=== PATIENT | female | born 2000 | race Caucasian/White ===

== ENCOUNTER 2023-10-08 20:52 | Inpatient (IN) | payer OTHER ==
[2023-10-08] MEDS ORDERED: Calcium Carbonate 500 MG Tab.Chew PO PRN (23:31)
[2023-10-08] MEDS ORDERED: Methylergonovine 0.2 MG/1 ML Amp IM PRN (23:31)
[2023-10-08] MEDS ORDERED: Misoprostol 200 MCG Tab BUCCAL PRN (23:31)
[2023-10-08] MEDS ORDERED: Nalbuphine 10 MG/1 ML Vial IVPUSH PRN (23:31)
[2023-10-08] MEDS ORDERED: Lidocaine 1% 50 ML MDV INJECT PRN (23:31)
[2023-10-08] MEDS ORDERED: Ondansetron 4 MG/2 ML SDV IVPUSH PRN (23:31)
[2023-10-08] MEDS ORDERED: Sodium Chloride 0.9% 10 ML Syringe FLUSH PRN (23:31)
[2023-10-08] MEDS ORDERED: Oxytocin/0.9 % Sodium Chloride 30 UNIT/500 ML BAG IV SCH (23:45)
[2023-10-08 23:52] LABS: BASOPHILS PERCENT AUTO 0.1 % (0.0-1.0); EOSINOPHILS ABSOLUTE AUTO 0.1 K/mm3 (0.0-0.4); EOSINOPHILS PERCENT AUTO 0.6 % (0.0-6.0); HEMATOCRIT 37.2 % (37.0-47.0); HEMOGLOBIN 12.6 gm/dl (12.0-16.0); IMMATURE GRAN ABSOLUTE AUTO 0.05 K/mm3 (0.00-0.05); IMMATURE GRAN PERCENT AUTO 0.4 % (0.0-0.4); LYMPHOCYTES ABSOLUTE AUTO 1.9 K/mm3 (1.0-4.8); LYMPHOCYTES PERCENT AUTO 15.7 % (24.0-44.0); MEAN CORPUSCULAR HEMOGLOBIN 30.8 pg (28.0-32.0); MEAN CORPUSCULAR HGB CONC 33.9 g/dl (32.0-36.0); MEAN PLATELET VOLUME 10.5 fl (9.4-12.3); MONOCYTES ABSOLUTE AUTO 0.7 K/mm3 (0.0-0.8); NEUTROPHILS ABSOLUTE AUTO 9.3 K/mm3 (1.8-7.7); NEUTROPHILS PERCENT AUTO 77.2 % (41.0-71.0); PLATELET COUNT,PLT 244 K/mm3 (150-400); RED BLOOD CELL COUNT 4.09 M/mm3 (4.10-5.30); WHITE BLOOD CELL COUNT,WBC 12.01 K/mm3 (3.9-11.3)
[2023-10-08] MEDS: Ampicillin 2 GM in Sodium Chloride 0.9% 100 ML IV ONE (23:56)
[2023-10-09] MEDS: Lactated Ringers 1,000 ML IV SCH (02:00)
[2023-10-09] MEDS: Oxytocin/Lactated Ringers 30 UNIT/500 ML BAG IV SCH (03:15)
[2023-10-09] MEDS: Ampicillin 1 GM in Sodium Chloride 0.9% 100 ML IV SCH (03:30)
[2023-10-09] MEDS ORDERED: Docusate Sodium 100 MG Cap PO PRN (04:38)
[2023-10-09] MEDS ORDERED: Hydrocortisone Acetate 25 MG Supp RECTAL PRN (04:38)
[2023-10-09] MEDS ORDERED: Magnesium Hydroxide 400 MG/5 ML Susp 30 ML Cup PO PRN (04:38)
[2023-10-09] MEDS ORDERED: Benzocaine/Menthol 20%-0.5% Spray 78 GM Cannister TOP PRN (04:38)
[2023-10-09] MEDS ORDERED: Witch Hazel Medicated Pads 40/Jar TOP PRN (04:38)
[2023-10-09] MEDS: Ibuprofen 600 MG Tab PO SCH (05:00)
[2023-10-09] MEDS: Prenatal Multivitamin with Calcium/Folic Acid/Iron Tab PO SCH (09:58)
[2023-10-09] MEDS: Acetaminophen 325 MG Tab PO PRN (20:30)
== END 2023-10-10 16:10 | disposition home or self-care (01) | DRG 807 ==
LOC: JD.NBCHECK 20:52 → JD.OB 10-09 02:23 → OBSVTOIN 10-09 03:05 → JD.OB 10-09 03:06
PROVIDERS: ADMIT Obstetrics & Gynecology; ATTEND Obstetrics & Gynecology
PROC: 10E0XZZ Delivery of Products of Conception, External Approach (ICD-10-PCS; principal; 2023-10-09)
PROC: 10907ZC Drainage of Amniotic Fluid, Therapeutic from Products of Conception, Via Natural or Artificial Opening (ICD-10-PCS; 2023-10-09)
DX: O99.824 Streptococcus B carrier state complicating childbirth (principal); Z37.0 Single live birth; O69.81X0 Labor and delivery complicated by cord around neck, without compression, not applicable or unspecified; Z3A.39 39 weeks gestation of pregnancy; Z90.89 Acquired absence of other organs
CPT/HCPCS: 36415; 59025; 59409; 85025; 86592; A9270-GY; J0290; J3490; J7120; J7999